=== PATIENT | female | born 1985 | race Caucasian/White ===

== ENCOUNTER 2017-02-26 07:37 | Emergency (ER) | payer BC ==
--- NOTE | 2017-02-26 08:16 | EDPHY ---
H & P Time Seen by Provider: 02/26/17 08:00 HPI/ROS: CHIEF COMPLAINT: Abdominal pain, HISTORY OF PRESENT ILLNESS: 31-year-old female presents to the emergency department with lower abdominal pain over last 2 days. The patient is nearly 14 weeks with an EDC of 08/29/2017. She had IVF implantation on 2016. She has had weekly ultrasounds up until a few weeks ago. She developed more right lower quadrant abdominal pain and pain in her groin yesterday which has persisted. It is intermittent and sharp. She has a constant level of which she describes as a burning sensation in her lower abdomen. No vaginal bleeding. No urinary symptoms. She has chronic loose stools. No diarrhea. No blood in her stools. No reported trauma. No back pain. No nausea or vomiting. No chest pain or difficulty breathing. No reported headache. REVIEW OF SYSTEMS: Constitutional: No fever, no chills. Eyes: No double or blurry vision. ENT: No sore throat. Respiratory: No cough, no shortness of breath. Cardiac: No chest pain. Gastrointestinal: Abdominal pain as above. No vomiting or diarrhea. Genitourinary: No dysuria. Musculoskeletal: No neck or back pain. Skin: No rashes. Neurological: No headache. Past Medical/Surgical History: IVF implantation 12/10/16, history of total colectomy as infant, appendectomy Social History: , Lives in [place] Smoking Status: Never smoked Physical Exam: General Appearance: Alert, no distress. Vital signs are stable. Eyes: Pupils equal and round. Extraocular motions are all intact. ENT: Mouth: Mucous membranes moist. Respiratory: No wheezing, rhonchi, or rales, lungs are clear to auscultation. Cardiovascular: Regular rate and rhythm. Gastrointestinal: Well-healed midline surgical incision. She has some mild tenderness with palpation in suprapubic area as well as just to the right of the suprapubic area of the groin. Gravid uterus palpated. No rebound, guarding or masses noted. No CVA tenderness bilaterally. Neurological: Alert and oriented x 3, cranial nerves II through XII grossly intact Skin: Warm and dry, no rashes. Musculoskeletal: Nontender to palpate along the cervical, thoracic or lumbar spine. Neck is supple. Extremities: Full range of motion and no peripheral edema. Psychiatric: Patient is oriented X 3, there is no agitation. Constitutional: Initial Vital Signs Temperature (C) 36.6 C 02/26/17 07:38 Heart Rate 76 02/26/17 07:38 Respiratory Rate 16 02/26/17 07:38 Blood Pressure 128/78 H 02/26/17 07:38 O2 Sat (%) 98 02/26/17 07:38 O2 Delivery Mode Room Air Allergies/Adverse Reactions: No Known Allergies Allergy (Unverified 02/26/17 07:42) Home Medications: Medication Instructions Recorded Levothyroxine [Synthroid 50 mcg 50 mcg PO DAILY06 02/26/17 (*)] Vit27&Calcium/Iron/FA 1 each PO 02/26/17 [] Medical Decision Making - Diagnostics Imaging Results: Imaging Impressions Obstetrics Ultrasound 02/26/17 08:11 Impression: Single live intrauterine gestation with estimated age by ultrasound of 14 weeks 0 days with an estimated delivery date of August 27, 2017. A follow up growth and anatomy scan could be considered in approximately 6 weeks. A second intrauterine gestation is not identified. Results called and discussed with JENNI DIAL on 02/26/2017 at 9:19 Pelvic ultrasound reveals normal-appearing of 14 week IUP with no free fluid. This was reported to me by Dr. Ryan Mckeon. Imaging: Discussed imaging studies w/ call center support representative Radiologist ED Course/Re-evaluation: 31-year-old female presents to the emergency department with right-sided lower abdominal pain. The patient is . Pelvic ultrasound was ordered which reveals a normal 14 week IUP with no evidence of free fluid. The patient was reassured. Urinalysis reveals no signs of infection. She was encouraged to continue vitamins and keep scheduled follow-up appointment with her OBGYN in [place]. She is planning on returning to [place] tomorrow. She was given OBGYN referral for [facility] in [facility]. Differential Diagnosis: Including but not limited to intrauterine , ectopic , ovarian torsion, demise, urinary tract infection, pyelonephritis, kidney stone - Data Points Laboratory Results: 02/26/17 07:45 Urine Color YELLOW Urine Appearance CLEAR Urine pH 8.0 H (5.0-7.5) Ur Specific [place] 1.016 (1.002-1.030) Urine Protein NEGATIVE (NEGATIVE) Urine Ketones NEGATIVE (NEGATIVE) Urine Blood NEGATIVE (NEGATIVE) Urine Nitrate NEGATIVE (NEGATIVE) Urine Bilirubin NEGATIVE (NEGATIVE) Urine Urobilinogen NEGATIVE EU EU (0.2-1.0) Ur Leukocyte Esterase NEGATIVE (NEGATIVE) Urine RBC 1-3 /hpf /hpf (0-3) Urine WBC 1-3 /hpf /hpf (0-3) Ur Epithelial Cells TRACE /lpf /lpf (NONE-1+) Urine Mucus TRACE /lpf /lpf (NONE-1+) Urine Glucose NEGATIVE (NEGATIVE) Departure - Departure Disposition: Home, Routine, Self-Care Clinical Impression: Abdominal pain Qualifiers: Abdominal location: lower abdomen, unspecified Qualified Code(s): R10.30 - Lower abdominal pain, unspecified Qualifiers: Weeks of gestation: 14 weeks Qualified Code(s): Z3A.14 - 14 weeks gestation of Condition: Good Instructions: (ED), Acute Abdominal Pain (ED) Additional Instructions: Return if you develop worsening abdominal pain, vaginal bleeding, or if you feel worse in any way. Referrals: Selin Garza MD [Medical Doctor] - As per Instructions (OBGYN on-call)
[2017-02-26 09:02] LABS: COLOR YELLOW; LEUKOCYTE ESTERASE,URINE NEGATIVE (NEGATIVE); NITRITE,URINE NEGATIVE (NEGATIVE)
[2017-02-26 09:03] LABS: MUCUS TRACE /lpf (NONE-1+)
[2017-02-26 09:45] VITALS: BP 120/76; PULSE 68; RESP 14; TEMP 97.7; O2SAT 97
== END 2017-02-26 09:44 | disposition home or self-care (01) ==
DX: O26.892 Other specified pregnancy related conditions, second trimester (principal); R10.30 Lower abdominal pain, unspecified; Z3A.14 14 weeks gestation of pregnancy; Z90.49 Acquired absence of other specified parts of digestive tract